=== PATIENT | male | born 1945 | race Caucasian/White ===

== ENCOUNTER 2025-09-01 22:12 | Emergency (ER) | payer OTHER ==
[~2025-09-01] VITALS: Ht 182.9 cm; Wt 95.3 kg
[2025-09-01] MEDS ORDERED: TOPROL XL25 M1 PO (22:20)
[2025-09-01] MEDS ORDERED: TENORMIN25 MG PO (22:21)
[2025-09-01] MEDS ORDERED: ALBUTEROL SULFATE 3 ML/2.5 MG AMPUL.NEB IH SCH (23:45)
[2025-09-01] MEDS ORDERED: 0.9 % SODIUM CHLORIDE 500 ML IV SCH (23:45)
[2025-09-01] MEDS ORDERED: CEFTRIAXONE SODIUM 2,000 MG VIAL IV STA (23:49)
[2025-09-01] MEDS ORDERED: METHYLPREDNISOLONE SOD SUCC 125 MG VIAL IV STA (23:49)
[2025-09-02 01:33] LABS: BASO % 0.7 % (0.1-1.2); EOS # 0.13 (0.04-0.54); EOS % 1.8 % (0.7-7.0); LYMPH # 0.92 (1.18-3.74); LYMPH % 12.6 % (19.3-53.1); MEAN PLATELET VOLUME 9.20 fl (9.4-12.4); MONO # 1.01 (0.24-0.82); NEUT # 5.18 (1.56-6.13); NEUT % 70.7 % (34.0-71.1); RED CELL DISTRIBUTION WIDTH 12.4 % (11.6-14.4)
[2025-09-02 01:34] LABS: MONO % 13.8 % (4.7-12.5)
[2025-09-02 01:52] LABS: BUN CREA RATIO 15.0 (7.0-25.0); CREATININE SERUM 1.04 mg/dL (0.70-1.30); GFR 68.54; GLUCOSE FASTING 100.0 mg/dL (65-100); OSMOLALITY SERUM 279.0 MOSM/KG (275-295)
[2025-09-02 03:30] LABS: COVID-19 AG NEGATIVE (NEGATIVE)
[2025-09-02 06:05] LABS: URINE APPEARANCE Clear; URINE BILIRRUBIN Negative (NEGATIVE); URINE BLOOD Negative; URINE COLOR Yellow; URINE GLUCOSE Negative (NEGATIVE); URINE KETONE Negative (NEGATIVE); URINE LEUKOCYTE Negative; URINE NITRATE Negative; URINE PROTEIN Negative (NEGATIVE); URINE UROBILINOGEN 0.2 E.U./dl
[2025-09-02 06:10] LABS: URINE BACTERIA 27.4 uL (0.0-1933)
[2025-09-02 06:16] LABS: URINE CAST 0.00 uL (0.0-1.40); URINE EPITHELIAL CELLS 0.3 uL (0.0-38.8); URINE RBC 0.5 uL (0.0-20.8); URINE WBC 0.6 uL (0.0-23.2)
== END 2025-09-02 06:27 | disposition left against medical advice (07) ==
LOC: ER 22:12
PROVIDERS: General Practice
DX: S80.02XA Contusion of left knee, initial encounter (principal); S80.01XA Contusion of right knee, initial encounter; S90.32XA Contusion of left foot, initial encounter; W18.39XA Other fall on same level, initial encounter; Y93.89 Activity, other specified; Y92.018 Other place in single-family (private) house as the place of occurrence of the external cause; Y99.9 Unspecified external cause status; J20.8 Acute bronchitis due to other specified organisms; M77.32 Calcaneal spur, left foot; M77.31 Calcaneal spur, right foot; M85.88 Other specified disorders of bone density and structure, other site; Z20.822 Contact with and (suspected) exposure to COVID-19
CPT/HCPCS: 36415; 71045; 73560; 73590; 73610; 73630; 94640; 96365; 96366; 99285; J0696; J7030